=== PATIENT | female | born 2000 | race Caucasian/White ===

== ENCOUNTER 2025-02-01 00:43 | Emergency (ER) | payer MEDICAID, OTHER ==
[~2025-02-01] VITALS: Ht 167.6 cm; Wt 98.0 kg
[2025-02-01 00:51] VITALS: O2SAT 98
[2025-02-01 01:25] LABS: BASOPHILS % 0.5 % (0.0-2.0); EOSINOPHILS % 0.5 % (0.0-5.0); HEMATOCRIT. 39.2 % (36.0-48.0); HEMOGLOBIN. 13.5 g/dL (12.0-16.0); LYMPHOCYTES % 19.1 % (20.0-50.0); MEAN PLATELET VOLUME 8.6 fl (7.4-10.4); MONOCYTES % 4.3 % (2.0-8.0); NEUTROPHILS % 75.6 % (40.0-76.0); PLATELET 248 x1000/uL (130-400); RED BLOOD CELL COUNT 4.48 mill/uL (4.2-5.4); RED CELL DISTRIBUTION WIDTH 13.7 % (11.6-14.6)
[2025-02-01 01:27] LABS: CLARITY URINE CLOUDY (CLEAR); COLOR URINE YELLOW (YELLOW); GLUCOSE URINE NEGATIVE (NEGATIVE); KETONES URINE TRACE (NEGATIVE); LEUKOCYTE ESTERASE URINE NEGATIVE (NEGATIVE); NITRITE URINE NEGATIVE (NEGATIVE); OCCULT BLOOD URINE 3+ (NEGATIVE); PH URINE 5.5 (4.5-8.0); PROTEIN URINE 1+ (NEGATIVE); SPECIFIC GRAVITY URINE 1.028 (1.005-1.030); UROBILINOGEN URINE 1.0 E.U./dL (0.2-1.0)
[2025-02-01] MEDS: SODIUM CHLORIDE 0.9% 1,000 ML IV ONE (01:32)
[2025-02-01 01:38] LABS: CREATININE 1.0 mg/dL (0.6-1.0); UREA NITROGEN BLOOD 8 mg/dL (9-23)
[2025-02-01 01:40] LABS: ASPARTATE AMINOTRANSFERASE 17 IU/L (<34); BILIRUBIN DIRECT < 0.1 mg/dL (<=3.0); BILIRUBIN TOTAL 0.3 mg/dL (0.1-1.0); PROTEIN TOTAL 7.2 g/dL (6.0-8.3)
[2025-02-01] MEDS: ONDANSETRON HCL 4MG/2ML INJ IV ONE ×2 (01:44→05:23)
[2025-02-01] MEDS: KETOROLAC 15MG/ML VIAL IV ONE ×2 (01:44→05:23)
[2025-02-01 02:09] LABS: SQUAMOUS EPITHELIAL CELL URINE 1+ /lpf (RARE/1+)
[2025-02-01 02:11] LABS: BACTERIA URINE 1+; RBC URINE TNTC /hpf (0-2); WBC URINE 0-2 /hpf (0-2)
[2025-02-01 03:21] LABS: HCG SCREEN NEGATIVE
[2025-02-01] MEDS ORDERED: TAMS-54 MT (05:14)
[2025-02-01] MEDS ORDERED: IBUP-1455 MT (05:14)
[2025-02-01 05:44] VITALS: BP 118/76; PULSE 75; RESP 16; TEMP 36.8; O2SAT 98
== END 2025-02-01 05:46 | disposition home or self-care (01) ==
LOC: ER 01:23
DX: N13.2 Hydronephrosis with renal and ureteral calculous obstruction (principal); Z79.3 Long term (current) use of hormonal contraceptives
CPT/HCPCS: 99285; 74176; 96374; 96375; 80076; 80048; 81003; 81025; 84703; 83690; 85025; 36415; 96376; J1885; J2405; J7030